=== PATIENT | female | born 1965 | race Caucasian/White ===

== ENCOUNTER 2024-09-17 09:22 | Outpatient (CLI) | payer MEDICAID, OTHER | END 2024-09-17 09:23 | disposition home or self-care (01) | LOC: CSHSLEEP 09:22 | PROVIDERS: ATTEND Internal Medicine | DX: G47.33 Obstructive sleep apnea (adult) (pediatric) (principal); R53.83 Other fatigue; R06.83 Snoring; R09.02 Hypoxemia | CPT/HCPCS: 95800 ==

== ENCOUNTER 2024-12-05 08:34 | Outpatient (CLI) | payer OTHER | END 2024-12-05 08:35 | disposition home or self-care (01) | LOC: CSHSLEEP 08:34 | PROVIDERS: ATTEND Internal Medicine | DX: G47.33 Obstructive sleep apnea (adult) (pediatric) (principal); R53.83 Other fatigue; R06.83 Snoring; E66.9 Obesity, unspecified; Z68.33 Body mass index [BMI] 33.0-33.9, adult; R09.02 Hypoxemia | CPT/HCPCS: 95811 ==